=== PATIENT | male | born 1955 | race Caucasian/White ===

== ENCOUNTER → 2017-09-25 | Outpatient (CLI) | payer OTHER ==
[~2017-09-25] MED LIST: ALFU10 PO; Aspir 8181 MG PO; BASAGLAR K100 UNIT/1 SC; Hydrochloroth12.5 MG PO; METO25ER PO; Multivitamin1 EAC2 PO; Novolog100 UNIT/2 SC; POMEGRANATE250 MG PO; SIMV10 PO; ZESTORETIC 20-121 EA PO; Zestril30 MG PO
== END | disposition home or self-care (01) ==
LOC: PLD 07:14
DX: C67.2 Malignant neoplasm of lateral wall of bladder (principal)
CPT/HCPCS: 88108

== ENCOUNTER 2017-10-09 08:16 | Day surgery (SDC) | payer OTHER ==
[~2017-10-09] VITALS: Ht 200.7 cm; Wt 76.2 kg
[~2017-10-09 08:16] MED LIST changes: -Hydrochloroth12.5 MG PO; -Multivitamin1 EAC2 PO; -POMEGRANATE250 MG PO; -Zestril30 MG PO
[2018-09-01] MEDS ORDERED: Zestril30 MG PO (13:46)
[2018-09-01] MEDS ORDERED: Hydrochloroth12.5 MG PO (13:46)
[2018-09-01] MEDS ORDERED: Multivitamin1 EAC2 PO (13:47)
[2018-09-01] MEDS ORDERED: POMEGRANATE250 MG PO (13:47)
== END 2017-10-09 10:38 | disposition home or self-care (01) ==
LOC: ORSCSDS 08:16
PROVIDERS: Urology
PROC: 0TBB8ZX Excision of Bladder, Via Natural or Artificial Opening Endoscopic, Diagnostic (ICD-10-PCS; principal; 2017-10-09 09:30)
DX: C67.2 Malignant neoplasm of lateral wall of bladder (principal); I10 Essential (primary) hypertension; E78.5 Hyperlipidemia, unspecified; E11.9 Type 2 diabetes mellitus without complications; F17.210 Nicotine dependence, cigarettes, uncomplicated; Z79.4 Long term (current) use of insulin; Z79.899 Other long term (current) drug therapy
CPT/HCPCS: 82947; 88305; J0744; J1100; J2250; J2405; J3010; J7120

== ENCOUNTER 2018-09-02 09:15 | Day surgery (SDC) | payer OTHER ==
[~2018-09-02] VITALS: Ht 170.2 cm; Wt 78.0 kg
[~2018-09-02 09:15] MED LIST changes: +Hydrochloroth12.5 MG PO; +Multivitamin1 EAC2 PO; +POMEGRANATE250 MG PO; +Zestril30 MG PO
== END 2018-09-02 22:51 | disposition home or self-care (01) ==
LOC: ORSCMMR 09:15 → ORD 10:30 → ORSCMMR 22:51
PROVIDERS: Internal Medicine Gastroenterology
PROC: 0DBN8ZX Excision of Sigmoid Colon, Via Natural or Artificial Opening Endoscopic, Diagnostic (ICD-10-PCS; principal; 2018-09-02 10:30)
PROC: 0DBH8ZX Excision of Cecum, Via Natural or Artificial Opening Endoscopic, Diagnostic (ICD-10-PCS; principal; 2018-09-02 10:30)
PROC: 0DBC8ZX Excision of Ileocecal Valve, Via Natural or Artificial Opening Endoscopic, Diagnostic (ICD-10-PCS; principal; 2018-09-02 10:30)
DX: Z12.11 Encounter for screening for malignant neoplasm of colon (principal); D12.0 Benign neoplasm of cecum; K63.5 Polyp of colon; D12.5 Benign neoplasm of sigmoid colon; I25.2 Old myocardial infarction; I10 Essential (primary) hypertension; E78.00 Pure hypercholesterolemia, unspecified; E10.8 Type 1 diabetes mellitus with unspecified complications; Z79.4 Long term (current) use of insulin; Z87.891 Personal history of nicotine dependence; Z79.899 Other long term (current) drug therapy
CPT/HCPCS: 82947; J2250; J3010; J7120

== ENCOUNTER → 2019-08-03 | Outpatient (CLI) | payer MEDICARE, OTHER ==
[2019-08-03 20:09] LABS: BASOPHILS ABSOLUTE AUTO 0.06 K/mm3 (0.00-0.23); BASOPHILS PERCENT AUTO 1 % (0-2); EOSINOPHILS ABSOLUTE AUTO 0.19 K/mm3 (0.00-0.68); EOSINOPHILS PERCENT AUTO 4 % (0-6); Hematocrit 37.8 % (37.0-53.0); Hemoglobin 12.9 g/dL (13.5-17.5); IMMATURE GRAN ABSOLUTE AUTO 0.01 K/mm3 (0.00-0.10); IMMATURE GRAN PERCENT AUTO 0 % (0-1); LYMPHOCYTES ABSOLUTE AUTO 1.28 K/mm3 (0.84-5.20); LYMPHOCYTES PERCENT AUTO 24 % (21-46); MONOCYTES ABSOLUTE AUTO 0.65 K/mm3 (0.16-1.47); MONOCYTES PERCENT AUTO 12 % (4-13); Mean Corpuscular HGB 35.1 pg (26.0-34.0); Mean Corpuscular HGB Conc 34.1 g/dL (31.5-36.5); Mean Corpuscular Volume 103 fL (80-100); Mean Platelet Volume 11.6 fL (9.1-12.4); NEUTROPHILS ABSOLUTE AUTO 3.14 K/mm3 (1.96-9.15); NEUTROPHILS PERCENT AUTO 59 % (41-73); Platelet Count 256 K/mm3 (150-400); RDW Coefficient Variation 12.7 % (11.7-14.2); RDW Standard Deviation 47.6 fL (35.1-46.3); Red Blood Cell Count 3.68 M/mm3 (4.30-5.90); White Blood Cell Count 5.33 K/mm3 (4.00-11.30)
[2019-08-03 20:24] LABS: Anion Gap 6 mmol/L (6-16); Blood Urea Nitrogen 28 mg/dL (8-24); Bun/Creatinine Ratio 29.7 (12.0-20.0); CO2, Blood 28 mmol/L (21-32); Calcium, Blood 9.5 mg/dL (8.5-10.1); Chloride, Blood 103 mmol/L (98-108); Creatinine, Blood 0.94 mg/dL (0.60-1.20); Glomerular Filtration Rate >60 (60-); Glucose, Blood 159 mg/dL (70-99); Potassium, Blood 4.5 mmol/L (3.5-5.5); Sodium, Blood 137 mmol/L (136-145)
== END | disposition home or self-care (01) ==
LOC: LAB SHORT 19:45 → LAB 19:45 → EDSTATUS 08-03 16:40 → LAB FUT 08-03 16:40
PROVIDERS: Physician Assistant
DX: E10.9 Type 1 diabetes mellitus without complications (principal); I10 Essential (primary) hypertension; Z79.4 Long term (current) use of insulin
CPT/HCPCS: 80048; 83036; 85025

== ENCOUNTER → 2021-11-14 | Outpatient (CLI) | payer MEDICARE, OTHER ==
[2021-11-14 11:13] LABS: Source, Urine Clean Catch
[2021-11-14 12:59] LABS: Appearance, Urine Hazy (Clear); Bilirubin, Urine Neg (Neg); Blood, Urine 3+ (Neg); Color, Urine Yellow (P-Yellow); Glucose Qualitative, Urine 3+ (Neg); Ketones, Urine 2+ (Neg); Leukocyte Esterase, Urine 2+ (Neg); Nitrite, Urine Pos (Neg); Protein, Urine 2+ (Neg); Urobilinogen, Urine 1+ (Normal)
[2021-11-14 13:20] LABS: Bacteria Many /hpf; Squamous Epithelial Cells Rare /hpf (Few); White Blood Cells, Urine 50-100 /hpf (0-5)
== END | disposition home or self-care (01) ==
LOC: LAB SHORT 11:10 → LAB 11:10
PROVIDERS: Physician Assistant
DX: N39.0 Urinary tract infection, site not specified (principal)
CPT/HCPCS: 81001

== ENCOUNTER 2023-12-31 05:50 | Day surgery (SDC) | payer MEDICARE, OTHER ==
[2023-12-31] VITALS (9 sets, daily range): BP systolic 108–141; BP diastolic 58–84
[~2023-12-31] VITALS: Ht 170.2 cm; Wt 73.1 kg
[~2023-12-31 05:50] MED LIST changes: +ASPI81CH PO; +ATOR40TA PO; +CENTRUM SILVER1 EAC2 PO; +COQMAX UBIQUIN100 MG PO; +DULO30 PO; +HUMALOG100 UNIT/1 SC; +INSULANI SC; +LISI20 PO; +Norvasc10 MG PO; +TAMS.4ER PO
[2023-12-31] MEDS ORDERED: CeFAZolin Sodium 2,000 MG in NS 100 ML IV SCH (06:15)
[2023-12-31] MEDS ORDERED: Lactated Ringer's 1,000 ML IV SCH (06:15)
[2023-12-31] MEDS ORDERED: propofoL 20 ML IV ONE (06:54)
[2023-12-31] MEDS ORDERED: Rocuronium Bromide 10 MG/ML 5ML Injection IV ONE (06:55)
[2023-12-31] MEDS ORDERED: FentaNYL Citrate 50 MCG/ML 2 ML Injection ONE (06:56)
[2023-12-31] MEDS ORDERED: Lidocaine HCl 2% Jelly 120MG/6ML SYR (20MG PER ML) ONE (06:59)
[2023-12-31] MEDS ORDERED: Lidocaine HCl 1% 5 ML SYR INJ ONE (07:00)
[2023-12-31] MEDS ORDERED: HYDROmorphone HCl/Pf 1MG SYR IV PRN (07:00)
[2023-12-31] MEDS ORDERED: Midazolam HCl 1MG / ML 2ML Vial IV ONE (07:00)
[2023-12-31] MEDS ORDERED: FentaNYL Citrate 50 MCG/ML 2 ML Injection IV PRN ×2 (07:05)
[2023-12-31] MEDS ORDERED: Ondansetron HCl 2 MG / ML 2ML Vial IV PRN (07:05)
[2023-12-31] MEDS ORDERED: Bupivacaine 0.5% HCl 5 MG/ML 30MLVIAL ONE (07:07)
--- NOTE | 2023-12-31 07:15 | NUR ---
Ambulatory in Day SurgeryPre-Op teaching done. Pt verbalizes understanding. History, Chart, Medications and Allergies reviewed before start of procedure.Patient confirms NPO status and agrees with scheduled surgery. Patient States Post-Procedure ride home has been arranged.
[2023-12-31] MEDS ORDERED: Phenylephrine HCl 100 MCG/ML-NS 10MLSYR (1MG/10ML) ONE (07:42)
[2023-12-31] MEDS ORDERED: ePHEDrine Sulfate 50 MG/ML 1ML Injection ONE (07:44)
[2023-12-31] MEDS ORDERED: Ondansetron HCl 2 MG / ML 2ML Vial ONE (07:50)
[2023-12-31] MEDS ORDERED: Dexamethasone Sod Phos 10 MG/ML 1ML VIAL ONE (07:50)
[2023-12-31] MEDS ORDERED: Sugammadex Sodium 200 MG/2ML SDV (100 MG/ML) ONE (08:03)
[2023-12-31] MEDS ORDERED: Flumazenil 0.1 MG / ML 5ML Vial ONE (08:33)
[2023-12-31] MEDS ORDERED: HYDROcodone 5-APAP 325 TAB PO PRN (09:00)
--- NOTE | 2023-12-31 09:41 | NUR ---
Discharge instructions reviewed with patient. Patient verbalizes understanding. Copy given to patient to take home. DRESSING REMAINS C/D/I. ICE TO INCISION
--- NOTE | 2023-12-31 09:48 | NUR ---
TOLERATING PO FLUIDS AND CRACKERS/CHEESE WELL. Patient States Post-Procedure ride home has been arranged.
== END 2023-12-31 23:17 | disposition home or self-care (01) ==
LOC: ORSCMMR 05:50 → ORD 07:30 → ORSCMMR 07:30
PROVIDERS: Surgery
PROC: 0WUF0JZ Supplement Abdominal Wall with Synthetic Substitute, Open Approach (ICD-10-PCS; principal; 2023-12-31 07:30)
DX: K42.9 Umbilical hernia without obstruction or gangrene (principal); I10 Essential (primary) hypertension; I25.10 Atherosclerotic heart disease of native coronary artery without angina pectoris; I25.2 Old myocardial infarction; E10.40 Type 1 diabetes mellitus with diabetic neuropathy, unspecified; Z79.899 Other long term (current) drug therapy; Z79.82 Long term (current) use of aspirin; E78.5 Hyperlipidemia, unspecified; G47.33 Obstructive sleep apnea (adult) (pediatric); Z79.4 Long term (current) use of insulin; Z87.891 Personal history of nicotine dependence
CPT/HCPCS: 82947; 93005; 93010; A9270; C1781; J0690; J1100; J2250; J2371; J2405; J2704; J3010; J7120

== ENCOUNTER 2024-04-07 11:35 | Day surgery (SDC) | payer MEDICARE, OTHER ==
[~2024-04-07] VITALS: Ht 172.7 cm; Wt 70.5 kg
[~2024-04-07 11:35] MED LIST changes: +Lactated Ringer's 1,000 ML IV ONE; +propofoL 50 ML IV ONE
--- NOTE | 2024-04-07 14:34 | NUR ---
04/07/24 1434 Cristina Cabral LATE ENTRY FOR TODAY MULTIPLE IV ATTEMPTS ON PT (11). ALL ATTEMPTS INFILTRATED EXCEPT LAST ATTEMPT WAS SUCCESSFUL. 22G IV STARTED IN RFA BY FUNMI MORA. PT WAS HOT PACKED AND WRAPPED IN BLANKETS. VEIN FINDER USED AND WAS NOT HELPFUL.
[2024-04-07] MEDS ORDERED: Lactated Ringer's 1,000 ML IV ONE (14:51)
[2024-04-07 15:42] VITALS: BP 120/60
== END 2024-04-07 15:46 | disposition home or self-care (01) ==
LOC: ORSCSDS 11:35
PROVIDERS: Internal Medicine Gastroenterology
PROC: 0DBP8ZX Excision of Rectum, Via Natural or Artificial Opening Endoscopic, Diagnostic (ICD-10-PCS; principal; 2024-04-07 13:00)
DX: Z12.11 Encounter for screening for malignant neoplasm of colon (principal); Z86.010 Personal history of colon polyps; K62.1 Rectal polyp; I25.2 Old myocardial infarction; E10.8 Type 1 diabetes mellitus with unspecified complications; G47.33 Obstructive sleep apnea (adult) (pediatric); I25.10 Atherosclerotic heart disease of native coronary artery without angina pectoris; I10 Essential (primary) hypertension; F32.A Depression, unspecified; F41.9 Anxiety disorder, unspecified; I47.9 Paroxysmal tachycardia, unspecified; K21.9 Gastro-esophageal reflux disease without esophagitis; J43.9 Emphysema, unspecified; Z87.891 Personal history of nicotine dependence; Z79.4 Long term (current) use of insulin; Z79.899 Other long term (current) drug therapy
CPT/HCPCS: 82947; 88305; J2704; J7120

== ENCOUNTER 2024-11-23 14:45 | Emergency (ER) | payer MEDICARE, OTHER ==
[~2024-11-23] VITALS: Ht 172.7 cm; Wt 72.6 kg
[~2024-11-23 14:45] MED LIST changes: -Lactated Ringer's 1,000 ML IV ONE; -propofoL 50 ML IV ONE
[2024-11-23 15:26] VITALS: BP 147/82
[2024-11-23] MEDS ORDERED: NS 1,000 ML IV SCH (15:30)
== END 2024-11-23 15:32 | disposition left against medical advice (07) ==
LOC: ER 14:45
DX: E10.65 Type 1 diabetes mellitus with hyperglycemia (principal); Z87.891 Personal history of nicotine dependence
CPT/HCPCS: 99283